=== PATIENT | male | born 1985 | race Hispanic/Latino ===

== ENCOUNTER 2018-07-27 16:02 | Emergency (ER) | payer SELFPAY ==
--- NOTE | 2018-07-27 17:15 | Emergency Department Report ---
ED General Adult HPI - General Stated complaint: DEHYDRATION Time Seen by Provider: 07/27/18 17:11 Source: patient, EMS - History of Present Illness Initial comments: She presents to the emergency department via EMS for questionable dehydration. The patient states there is nothing wrong with him and he wants to go home he is very hesitant to give us any information. When asked why he is here patient states I really don't know and he was forced to come. Patient has no complaints like to go home. Improves with: none Worsens with: none Associated Symptoms: denies other symptoms Treatments Prior to Arrival: none ED Review of Systems ROS: Stated complaint: DEHYDRATION Other details as noted in HPI Comment: All other systems reviewed and negative Constitutional: denies: chills, fever Eyes: denies: eye pain, eye discharge, vision change ENT: denies: ear pain, throat pain Respiratory: denies: cough, shortness of breath, wheezing Cardiovascular: denies: chest pain, palpitations Endocrine: no symptoms reported Gastrointestinal: denies: abdominal pain, nausea, diarrhea Genitourinary: denies: urgency, dysuria Musculoskeletal: denies: back pain, joint swelling, arthralgia Skin: denies: rash, lesions Neurological: denies: headache, weakness, paresthesias Psychiatric: denies: anxiety, depression Hematological/Lymphatic: denies: easy bleeding, easy bruising ED Physical Exam - General General appearance: alert, in no apparent distress - Head Head exam: Present: atraumatic, normocephalic - Eye Eye exam: Present: normal appearance - ENT ENT exam: Present: mucous membranes moist - Neck Neck exam: Present: normal inspection - Respiratory Respiratory exam: Present: normal lung sounds bilaterally. Absent: respiratory distress, wheezes, rales, rhonchi - Cardiovascular Cardiovascular Exam: Present: regular rate, normal rhythm. Absent: systolic murmur, diastolic murmur, rubs, gallop - GI/Abdominal GI/Abdominal exam: Present: soft, normal bowel sounds. Absent: distended, tenderness - Rectal Rectal exam: Present: deferred - Extremities Exam Extremities exam: Present: normal inspection - Back Exam Back exam: Present: normal inspection - Neurological Exam Neurological exam: Present: alert, oriented X3, CN II-XII intact. Absent: motor sensory deficit - Psychiatric Psychiatric exam: Present: normal affect, normal mood - Skin Skin exam: Present: warm, dry, intact, normal color. Absent: rash ED Medical Decision Making - Medical Decision Making Patient denies homicidal suicidal ideation Patient states he has no complaints and the like to leave Before AMA paperwork could be presented to the patient he eloped Critical care attestation.: If time is entered above; I have spent that time in minutes in the direct care of this critically ill patient, excluding procedure time. ED Disposition Clinical Impression: Encounter for medical screening examination Disposition: ELOPED Is pt being admited?: No Does the pt Need Aspirin: No Condition: Stable Time of Disposition: 16:15
== END 2018-07-27 17:11 | disposition left against medical advice (07) ==
LOC: ED 16:02
DX: Z00.00 Encounter for general adult medical examination without abnormal findings (principal); E86.0 Dehydration
CPT/HCPCS: 99282

== ENCOUNTER 2018-07-27 18:16 | Emergency (ER) | payer SELFPAY ==
[2018-07-27] MEDS ORDERED: NACL 0.9% 1000 ML 1,000 ML IV ONE (19:00)
--- NOTE | 2018-07-27 19:08 | Emergency Department Report ---
ED Psych HPI - General Chief Complaint: Psych Stated Complaint: DEHYDRATION/CHEST PAIN/MENTAL EVAL Time Seen by Provider: 07/27/18 18:59 Source: patient Mode of arrival: Ambulatory - History of Present Illness Initial Comments: Patient is 32 years old male with history of depression. Patient brought to the ER accompanied by his mother and grandmother. Patient brought to the ER for evaluation of depression and possible suicidal ideation and attempt. Mother stated that for the last 4 days he became very withdrawn and depressed. She stated that he stop eating and drinking and he kept telling her that whatever happened he loved her and she needs to forgive him. Mother stated that he never said anything like this before. Mother also added that she feel he is planning to hurt himself. When I questioned the patient about a few thinking about killing himself patient refused to talk even though he was answering question appropriately before that. Patient denied auditory or visual hallucination. MD Complaint: feels depressed Associated Psychiatric Symptoms: depression - Related Data Allergies Allergy/AdvReac Type Severity Reaction Status Date / Time No Known Allergies Allergy Unverified 07/27/18 18:26 ED Review of Systems ROS: Stated complaint: DEHYDRATION/CHEST PAIN/MENTAL EVAL Other details as noted in HPI Comment: All other systems reviewed and negative Constitutional: denies: chills, fever Respiratory: denies: cough, orthopnea, shortness of breath, SOB with exertion, SOB at rest, wheezing Cardiovascular: denies: chest pain, palpitations, dyspnea on exertion Gastrointestinal: denies: abdominal pain, nausea, vomiting, diarrhea, constipation, hematemesis, hematochezia Neurological: denies: headache, weakness, numbness, paresthesias, confusion, abnormal gait Psychiatric: depression, suicidal thoughts ED Past Medical Hx - Past Medical History Previous Medical History?: Yes Hx CVA: Yes Hx Psychiatric Treatment: Yes (depression. anxiety) - Surgical History Past Surgical History?: Yes Additional Surgical History: left knee surgery - Social History Smoking Status: Never Smoker Substance Use Type: None ED Physical Exam - General Limitations: No Limitations General appearance: alert, other (depressed) - Head Head exam: Present: atraumatic, normocephalic, normal inspection - Eye Eye exam: Present: normal appearance, PERRL - ENT ENT exam: Present: mucous membranes dry - Neck Neck exam: Present: normal inspection, full ROM. Absent: tenderness, meningismus, lymphadenopathy, thyromegaly - Respiratory Respiratory exam: Present: normal lung sounds bilaterally. Absent: respiratory distress, wheezes, rales, rhonchi, stridor, chest wall tenderness, accessory muscle use, decreased breath sounds, prolonged expiratory - Cardiovascular Cardiovascular Exam: Present: tachycardia - GI/Abdominal GI/Abdominal exam: Present: soft, normal bowel sounds. Absent: distended, tenderness, guarding, rebound, rigid, organomegaly, mass, bruit, pulsatile mass , hernia - Extremities Exam Extremities exam: Present: normal inspection, full ROM, normal capillary refill. Absent: pedal edema, calf tenderness - Back Exam Back exam: Present: normal inspection, full ROM. Absent: tenderness, CVA tenderness (R), CVA tenderness (L), muscle spasm, paraspinal tenderness, vertebral tenderness - Neurological Exam Neurological exam: Present: alert, oriented X3, CN II-XII intact, normal gait, reflexes normal - Psychiatric Psychiatric exam: Present: depressed, flat affect. Absent: homicidal ideation - Skin Skin exam: Present: warm, dry, intact ED Course Vital Signs 07/27/18 18:26 Temperature 98.4 F Pulse Rate 113 H Respiratory 18 Rate Blood Pressure 166/114 O2 Sat by Pulse 97 Oximetry Critical care attestation.: If time is entered above; I have spent that time in minutes in the direct care of this critically ill patient, excluding procedure time. ED Disposition Clinical Impression: Depression, Dehydration Disposition: [id number]/TX-[id number] PSY HOSP/PSY UNIT Is pt being admited?: No Condition: Stable
[2018-07-27 19:22] LABS: Basophils # (Auto) 0.1 K/mm3 (0.0-0.1); Basophils % (Auto) 0.5 % (0.0-1.8); Eosinophils % (Auto) 0.1 % (0.0-4.3); Hematocrit 48.5 % (35.5-45.6); Hemoglobin 16.2 gm/dl (11.8-15.2); Lymphocytes # (Auto) 1.9 K/mm3 (1.2-5.4); Lymphocytes % (Auto) 18.8 % (13.4-35.0); Mean Corpuscular HGB Conc 33 % (32-34); Mean Corpuscular Hemoglobin 29 pg (28-32); Mean Corpuscular Volume 88 fl (84-94); Monocytes % (Auto) 9.9 % (0.0-7.3); Platelet Count 260 K/mm3 (140-440); Red Blood Count 5.52 M/mm3 (3.65-5.03); Red Cell Distribution Width 13.7 % (13.2-15.2)
[2018-07-27 19:37] LABS: Alanine Aminotransferase 23 units/L (7-56); Albumin 5.7 g/dL (3.9-5)
[2018-07-27 19:39] LABS: Bilirubin,Direct < 0.2 mg/dL (0-0.2)
[2018-07-27 19:48] LABS: BUN/Creatinine Ratio 18; Blood Urea Nitrogen 20 mg/dL (9-20); Calcium 10.3 mg/dL (8.4-10.2); Hemolysis Index 5
[2018-07-27] MEDS: GEODON IM PRN (23:55)
[2018-07-27] MEDS ORDERED: GEODON IM ONE (23:56)
[2018-07-28 01:51] LABS: Bilirubin,Urine NEG (Negative); Blood,Urine NEG (Negative); Color,Urine Amber (Yellow); Hyaline Casts,Urine 2 /LPF; Mucus,Urine 3+ /HPF; Urobilinogen,Urine < 2.0 mg/dL (<2.0); WBC,Urine < 1.0 /HPF (0.0-6.0)
[2018-07-28 01:52] LABS: Amphetamine Screen,Urine PRESUMPTIVE NEGATIVE; Benzodiazepines Screen,Urine PRESUMPTIVE NEGATIVE; Cannabinoid Screen,Urine PRESUMPTIVE NEGATIVE; Cocaine Screen,Urine PRESUMPTIVE NEGATIVE; Methadone Screen,Urine PRESUMPTIVE NEGATIVE; Opiate Screen,Urine PRESUMPTIVE NEGATIVE
--- NOTE | 2018-07-28 12:47 | Consultation ---
History of Present Illness - Reason for Consult Consult date: 07/28/18 Reason for consult: Initial Psychiatric Evaluation - Chief Complaint Chief complaint: " Dehydration issues" - History of Present Psychiatric Illness Patient is 32 years old male with history of depression. Patient brought to the ER accompanied by his mother and grandmother. Patient brought to the ER for evaluation of depression and possible suicidal ideation and attempt. Mother stated that for the last 4 days he became very withdrawn and depressed. She stated that he stop eating and drinking and he kept telling her that whatever happened he loved her and she needs to forgive him. Mother stated that he never said anything like this before. Mother also added that she feel he is planning to hurt himself. Initially when provider attempted to assess patient he appears very guarded/ evasive. Some questions patient refused to answer. When asked, patient states " I'm here for dehydration issues." Initially patient denies PPHx. Later when patient informed provider that he has been on Wellbutrin it is evident that patient has PPHx. At times patient can be seen talking/whispering to self as if he is responding to internal stimuli. Patient has blank stare with bizarre behavior. Today the patient is uncooperative and guarded/evasive during the assessment. Current Psychiatric Medications: Patient denies. Past psychiatric History: Patient denies past psychiatric diagnosis; 1 previous inpatient psychiatric hospitalization ( [facility], age 16); No outpatient psychiatrist; last seen outpatient psychiatrist as a teenager; refuses to answer any questions related to previous suicide attempt. Past Psychiatric Medication Trials: Wellbutrin- doesn't tell provider whether medication was effective. Drug/Alcohol Abuse: Patient denies drug/alcohol abuse. Social History: 2 years of college; unemployed- no source of income; lives with mother in [place], [place]. Family History: Father- " alcoholism" Medications and Allergies Allergies Allergy/AdvReac Type Severity Reaction Status Date / Time No Known Allergies Allergy Unverified 07/27/18 18:26 Home Medications Medication Instructions Recorded Confirmed Last Taken Type Metoprolol Tartrate 50 mg PO QDAY 07/28/18 07/28/18 Unknown History Active Meds: Active Medications Ziprasidone (Geodon) 20 mg IM Q12H PRN PRN Reason: Agitation Stop: 07/30/18 23:49 Last Admin: 07/27/18 23:55 Dose: 20 mg Mental Status Exam - Vital signs Last Vital Signs Temp 98.6 F 07/28/18 09:56 Pulse 98 H 07/28/18 09:56 Resp 18 07/28/18 09:56 BP 154/98 07/28/18 09:56 Pulse Ox 98 07/28/18 09:56 - Exam Narrative exam: Mental Status Exam General Appearance: Causally Dressed-hospital gown Eye Contact: Intermittent Orientation: Alert and oriented x 3 (person, place, time) Attitude/Behavior: Evasive, guarded, somewhat uncooperative Sensorium: Distracted Psychomotor & Musculoskeletal Activity: Ambulatory Mood: " pretty good" Affect: Constricted; incongruent Speech/Language: Delayed, hesitant Thought Processes: Blocking (?), retarded Thought Content: Paranoid delusions Perception: Patient denies A/V/T hallucinations Concentration/Attention: Impaired Suicidal Ideations/Plan: Patient denies. Homicidal Ideations/Plan: Patient denies. Judgment: Poor Insight: Poor Results Result Diagrams: 07/27/18 19:05 07/27/18 19:05 Abnormal lab results 07/27/18 07/27/18 07/27/18 Range/Units 19:05 19:05 19:05 RBC (3.65-5.03) M/mm3 Hgb (11.8-15.2) gm/dl Hct (35.5-45.6) % [place] % (Auto) (0.0-7.3) % [place] # (0.0-0.8) K/mm3 Seg Neutrophils % (40.0-70.0) % Glucose 119 H (75-100) mg/dL Calcium 10.3 H (8.4-10.2) mg/dL Total Bilirubin (0.1-1.2) mg/dL Total Protein (6.3-8.2) g/dL Albumin (3.9-5) g/dL Salicylates < 0.3 L (2.8-20.0) mg/dL Acetaminophen < 5.0 L (10.0-30.0) ug/mL 07/27/18 07/27/18 Range/Units 19:05 19:05 RBC 5.52 H (3.65-5.03) M/mm3 Hgb 16.2 H (11.8-15.2) gm/dl Hct 48.5 H (35.5-45.6) % [place] % (Auto) 9.9 H (0.0-7.3) % [place] # 1.0 H (0.0-0.8) K/mm3 Seg Neutrophils % 70.7 H (40.0-70.0) % Glucose (75-100) mg/dL Calcium (8.4-10.2) mg/dL Total Bilirubin 1.30 H (0.1-1.2) mg/dL Total Protein 8.8 H (6.3-8.2) g/dL Albumin 5.7 H (3.9-5) g/dL Salicylates (2.8-20.0) mg/dL Acetaminophen (10.0-30.0) ug/mL All other labs normal. Assessment and Plan Assessment and plan: Impression: R/O Mood Disorder with psychotic features. Today the patient is uncooperative and guarded/evasive during the assessment. DDx: r/o Psychosis Unspecified r/o MDD, recurrent, severe with psychotic features Recommendation/Plan: 1. Continue 1013. Will reassess in 24 hours. 2. Gain collateral to determine proper disposition. 3. Start Abilify 5mg po QHS mood/psychosis. Discussed metabolic side effects of Abilify. 5. Will monitor psychosis, mood, sleep, appetite, compliance, and side effects. Disposition: The patient will be referred to inpatient psychiatric services. Staffed with Dr. Lillian Darnell.
[2018-07-28] MEDS: GEODON IM PRN (17:29)
[2018-07-28] MEDS ORDERED: TYLENOL ONE (17:33)
[2018-07-28] MEDS ORDERED: ABILIFY PO ONE (17:47)
[2018-07-29] MEDS ORDERED: LOPRESSOR PO SCH (10:00)
--- NOTE | 2018-07-29 10:31 | Progress Note ---
Subjective - Reason for Consult Consult date: 07/29/18 Reason for consult: Psychiatry Follow-up - Chief Complaint Chief complaint: "I'm dehydrated" 32 years old white male presenting to the ER for bizarre behavior. Today the patient is calm, but disorganized during the assessment. He is adamant that he was brought to the ER for dehydration. His answers to questions isn't logical. He had to be redirected several times to keep him on topic. He stated not sleeping for 2 days prior to coming to the ER. He denies SI/HI's and AVH's. No indications of side effects of his medication. Mental Status Exam - Vital signs Last Vital Signs Temp 98.7 F 07/28/18 19:52 Pulse 94 H 07/29/18 10:10 Resp 18 07/28/18 19:52 BP 167/100 07/29/18 10:10 Pulse Ox 95 07/28/18 19:52 - Exam Narrative exam: MSE: Appearance: calm Behavior: blank stare intermittently Speech: regular rate and tone Mood: "okay" guarded/evasive Affect: blunted Thought Process: disorganized Thought Content: denies SI/HI's and AVH's, delusional Motor Activity: sitting up in the bed Cognition: A/O x3 Insight: poor Judgment: poor Assessment and Plan Impression: Mood Disorder with psy features. Today the patient is calm, but disorganized during the assessment. UDS is negative. DDx: R/O Schizoaffective DO, Bipolar DO with psychosis Recommendation/Plan: Continue 1013. Continue Abilify 5 mg PO HS for mood/ psychosis. Discussed possible metabolic side effects of Abilify with the patient. Disposition: The patient will be referred to inpatient psychiatric services. Staffed with Dr. Liriano.
[2018-07-29] MEDS ORDERED: ABILIFY PO SCH (11:00)
[2018-07-29] MEDS: GEODON IM PRN (15:00)
[2018-07-30] MEDS ORDERED: WATER FOR INJ (PF) ONE (08:22)
[2018-07-30] MEDS: GEODON IM PRN (08:27)
[2018-07-30 09:08] VITALS: BP 155/82
== END 2018-07-30 09:00 ==
LOC: ED 18:16 → EEVIPCON 18:16 → ED 07-30 09:00
DX: F32.9 Major depressive disorder, single episode, unspecified (principal); E86.0 Dehydration; F39 Unspecified mood [affective] disorder; F41.9 Anxiety disorder, unspecified; Z86.73 Personal history of transient ischemic attack (TIA), and cerebral infarction without residual deficits
CPT/HCPCS: 36415; 80048; 80074; 80307; 81001; 85025; 96360; 96361; 96372; 99285; G0480; J3486; J7030; 80320